=== PATIENT | female | born 1985 | race Caucasian/White ===

== ENCOUNTER 2018-07-17 07:28 | Day surgery (SDC) | payer OTHER ==
[2018-07-17] MEDS ORDERED: NA CHLORIDE 0.9% 250 ML ONE (07:48)
[2018-07-17 09:29] LABS: MPV 9.2 fL (7.6-11.3)
[2018-07-17 09:44] LABS: Platelet Estimate ADEQ
== END 2018-07-17 09:24 | disposition home or self-care (01) ==
LOC: DS 07:28
PROVIDERS: ATTEND Internal Medicine Gastroenterology
DX: K92.1 Melena (principal)
CPT/HCPCS: 36415; 36430; 85049; 86850; 86900; 86901; P9035

== ENCOUNTER 2018-07-17 11:02 | Inpatient (IN) | payer OTHER ==
[2018-07-17 12:11] LABS: Absolute Lymphocytes (CBC) 1.3 K/uL (0.7-4.9); Absolute Monocytes 0.3 K/uL (0.1-1.3); Absolute Neutrophil 3.1 K/uL (1.8-8.0); Basophils % 0.5 % (0-1.3); Eosinophils % 0.5 % (0-4.4); Hematocrit 15.2 % (36.0-45.0); Lymphocytes % 26.8 % (15.3-44.8); MPV 9.7 fL (7.6-11.3); Monocytes % 6.4 % (3.3-12.3); RBC Red Blood Cell Count 1.72 M/uL (3.86-4.86)
[2018-07-17 12:28] LABS: ALT/SGPT 46 U/L (12-78); AST/SGOT 29 U/L (15-37); Albumin 2.8 g/dL (3.4-5.0); Alkaline Phosphatase 37 U/L (45-117); BUN Blood Urea Nitrogen 7 mg/dL (7-18); Bicarbonate 27 mmol/L (21-32); Bilirubin Direct < 0.1 mg/dL (0-0.2); Bilirubin Total 0.2 mg/dL (0.2-1.0); Glucose Level 101 mg/dL (74-106); Lipase 85 U/L (73-393); Potassium 3.6 mmol/L (3.5-5.1); Protein, Total 5.8 g/dL (6.4-8.2); Sodium Level 140 mmol/L (136-145)
[2018-07-17] MEDS ORDERED: NA CHLORIDE 0.9% 0 ML ONE (12:34)
--- NOTE | 2018-07-17 13:36 | EDPHYS ---
Physician Documentation [facility] Name: Roberta Bojorquez Age: 32 yrs Sex: Female : 1985 Arrival Date: 07/17/2018 Time: 11:06 Bed 20 Private MD: None, None ED Physician Dar Villatoro HPI: 07/17 13:35 This 32 yrs old Female presents to ER via Ambulatory with complaints of jr8 Abnormal Lab Results. GI bleeding. 13:35 The patient presents to the emergency department with rectal bleeding, a moderate jr8 amount, bright red blood with bowel movement, with multiple such episodes. Onset: The symptoms/episode began/occurred gradually, 5 day(s) ago. Abdominal pain: none is appreciated. Modifying factors: The symptoms are alleviated by nothing, the symptoms are aggravated by nothing. Associated signs and symptoms: Pertinent positives: dizziness when standing, fatigue . Severity of symptoms: At their worst the symptoms were moderate in the emergency department the symptoms are unchanged. The patient has not experienced similar symptoms in the past. The patient has been recently seen by a physician:. Patient recently seen by Dr. Faria for GI bleeding. Was prepped to have colonoscopy and endoscopy today but her blood work returned with significantly low H/H. Told to come to ED at that time for further treatment and admission . 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 - Social history:: Smoking status: Patient/guardian denies using tobacco. - Ebola Screening: : No symptoms or risks identified at this time. ROS: 13:35 Eyes: Negative for injury, pain, redness, and discharge, ENT: Negative for injury, jr8 pain, and discharge, Neck: Negative for injury, pain, and swelling, Cardiovascular: Negative for chest pain, palpitations, and edema, Respiratory: Negative for shortness of breath, cough, wheezing, and pleuritic chest pain, Back: Negative for injury and pain, MS/Extremity: Negative for injury and deformity, Skin: Negative for injury, rash, and discoloration, Neuro: Negative for headache, weakness, numbness, tingling, and seizure. Positive for dizziness 13:35 Constitutional: Positive for fatigue. 13:35 Abdomen/GI: Positive for rectal bleeding, Negative for abdominal pain, nausea, vomiting, and diarrhea, hematemesis, black/tarry stool, rectal pain, bowel incontinence, flatulence. Exam: 13:35 Eyes: Pupils equal round and reactive to light, extra-ocular motions intact. Lids and jr8 lashes normal. Conjunctiva and sclera are non-icteric and not injected. Cornea within normal limits. Periorbital areas with no swelling, redness, or edema. ENT: Nares patent. No nasal discharge, no septal abnormalities noted. Tympanic membranes are normal and external auditory canals are clear. Oropharynx with no redness, swelling, or masses, exudates, or evidence of obstruction, uvula midline. Mucous membranes moist. Neck: Trachea midline, no thyromegaly or masses palpated, and no cervical lymphadenopathy. Supple, full range of motion without nuchal rigidity, or vertebral point tenderness. No Meningismus. Cardiovascular: Regular rate and rhythm with a normal S1 and S2. Grade 2/5 systolic murmur. Normal PMI, no JVD. No pulse deficits. Respiratory: Lungs have equal breath sounds bilaterally, clear to auscultation and percussion. No rales, rhonchi or wheezes noted. No increased work of breathing, no retractions or nasal flaring. Back: No spinal tenderness. No costovertebral tenderness. Full range of motion. MS/ Extremity: Pulses equal, no cyanosis. Neurovascular intact. Full, normal range of motion. Neuro: Awake and alert, GCS 15, oriented to person, place, time, and situation. Cranial nerves II-XII grossly intact. Motor strength 5/5 in all extremities. Sensory grossly intact. Cerebellar exam normal. Normal gait. 13:35 Abdomen/GI: Inspection: abdomen appears normal, Bowel sounds: active, all quadrants, Palpation: abdomen is soft and non-tender, in all quadrants, mass, is not appreciated, rebound tenderness, is not appreciated, voluntary guarding, is not appreciated, involuntary guarding, is not appreciated, no appreciated organomegaly, Rectal exam: rectal tone normal, Stool: grossly bloody, guaiac positive, hemorrhoid(s), are not appreciated, mass, is not appreciated, swelling, is not appreciated, tenderness, is not appreciated, the exam is chaperoned by the nurse, Indicators: McBurney's point is not tender, Dumont's sign is negative, Rovsing's sign is negative, Liver: tenderness, is not appreciated. 13:35 Skin: Appearance: Color: pale, Temperature: cool, Moisture: normal moisture, petechiae, not noted, ecchymosis, not noted. Vital Signs: 11:18 BP 128 / 67; Pulse 98; Resp 16 S; Temp 98.7(TE); Pulse Ox 100% on R/A; Weight 88 kg aa5 (R); Height 5 ft. 8 in. (172.72 cm) (R); Pain 4/10; 12:12 BP 113 / 66; Pulse 95; Resp 18; Pulse Ox 100% on R/A; hj 13:31 BP 115 / 68; Pulse 89; Resp 18; Pulse Ox 100% on R/A; hj 14:54 BP 115 / 58; Pulse 85; Resp 18; Pulse Ox 100% on R/A; hj 15:44 BP 115 / 58; Pulse 94; Resp 18; Pulse Ox 96% on R/A; hj 11:18 Body Mass Index 29.50 (88.00 kg, 172.72 cm) aa5 MDM: 11:19 Patient medically screened. [facility] 13:33 Data reviewed: vital signs, nurses notes, lab test result(s), and as a result, I will jr admit patient. Data interpreted: Pulse oximetry: on room air is 100 %. Interpretation: normal. Counseling: I had a detailed discussion with the patient and/or guardian regarding: the historical points, exam findings, and any diagnostic results supporting the discharge/admit diagnosis, lab results, the need for further work-up and treatment in the hospital. Physician consultation: Henry Henning MD was called at 13:33, was contacted at 13:33, regarding admission, to the telemetry unit. consult, patient's condition, and will see patient. ED course: Dr. Faria Consulted and will see patient as well . 07/17 11:34 Order name: Basic Metabolic Panel; Complete Time: 12:42 iw 07/17 11:34 Order name: CBC with Diff; Complete Time: 12:42 iw 07/17 11:34 Order name: Creatinine for Radiology; Complete Time: 12:42 iw 07/17 11:34 Order name: Hepatic Function; Complete Time: 12:42 07/17 11:34 Order name: Lipase; Complete Time: 12:42 07/17 11:34 Order name: Type And Screen 07/17 11:34 Order name: IV Saline Lock; Complete Time: 11:43 07/17 11:34 Order name: Labs collected and sent; Complete Time: 11:43 07/17 13:10 Order name: Bb Add On eb Administered Medications: 13:37 Drug: ProTONIX 40 mg Route: IVP; Site: right antecubital; hj 13:42 Follow up: Response: No adverse reaction hj 15:52 Follow up: Response: No adverse reaction hj 13:59 Drug: ProTONIX 8 mg/hr Route: IV; Rate: 25 ml/hr; Site: left antecubital; hj 15:51 Follow up: IV Status: Infusion continued upon admission Disposition: 17:14 Co-signature as Attending Physician, Dar Villatoro MD. Disposition: 07/17/18 13:34 Hospitalization ordered by Henry Henning for Inpatient Admission. Preliminary diagnosis are Acute Anemia, Gastrointestinal hemorrhage, unspecified. - Bed requested for Telemetry/MedSurg (Inpatient). - Status is Inpatient Admission. hj - Condition is Stable. - Problem is new. - Symptoms are unchanged. UTI on Admission? No Critical care time excluding procedures: 15:09 Critical care time: Bedside Care: 20 minutes, Consultation: 10 minutes, Family jr8 Intervention: 10 minutes. Total time: 40 minutes Signatures: Dispatcher [employer]DA[employer] Vero Cheney RN RN Meseret Cruz RN RN aa5 Gabriele Gerardo PA PA jr8 Sergio Rawls RN RN hj Starr, Gregory, MD MD Corrections: (The following items were deleted from the chart) 13:40 13:35 Eyes: Pupils equal round and reactive to light, extra-ocular motions intact. Lids jr8 and lashes normal. Conjunctiva and sclera are non-icteric and not injected. Cornea within normal limits. Periorbital areas with no swelling, redness, or edema. ENT: Nares patent. No nasal discharge, no septal abnormalities noted. Tympanic membranes are normal and external auditory canals are clear. Oropharynx with no redness, swelling, or masses, exudates, or evidence of obstruction, uvula midline. Mucous membranes moist. Neck: Trachea midline, no thyromegaly or masses palpated, and no cervical lymphadenopathy. Supple, full range of motion without nuchal rigidity, or vertebral point tenderness. No Meningismus. Cardiovascular: Regular rate and rhythm with a normal S1 and S2. No gallops, murmurs, or rubs. Normal PMI, no JVD. No pulse deficits. Respiratory: Lungs have equal breath sounds bilaterally, clear to auscultation and percussion. No rales, rhonchi or wheezes noted. No increased work of breathing, no retractions or nasal flaring. Back: No spinal tenderness. No costovertebral tenderness. Full range of motion. MS/ Extremity: Pulses equal, no cyanosis. Neurovascular intact. Full, normal range of motion. Neuro: Awake and alert, GCS 15, oriented to person, place, time, and situation. Cranial nerves II-XII grossly intact. Motor strength 5/5 in all extremities. Sensory grossly intact. Cerebellar exam normal. Normal gait. jr8 15:49 13:34 Hospitalization Ordered by Henry Henning MD for Inpatient Admission. Preliminary iw diagnosis is Acute Anemia; Gastrointestinal hemorrhage, unspecified. Bed requested for Telemetry/MedSurg (Inpatient). Status is Inpatient Admission. Condition is Stable. Problem is new. Symptoms are unchanged. UTI on Admission? No. jr8 16:02 15:49 07/17/2018 13:34 Hospitalization Ordered by Henry Henning MD for Inpatient hj Admission. Preliminary diagnosis is Acute Anemia; Gastrointestinal hemorrhage, unspecified. Bed requested for Telemetry/MedSurg (Inpatient). Status is Inpatient Admission. Condition is Stable. Problem is new. Symptoms are unchanged. UTI on Admission? No. iw
--- NOTE | 2018-07-17 13:36 | ER ---
Nurse's Notes [facility] Name: Roberta Bojorquez Age: 32 yrs Sex: Female : 1985 Arrival Date: 07/17/2018 Time: 11:06 Bed 20 Private MD: None, None Diagnosis: Acute Anemia;Gastrointestinal hemorrhage, unspecified Presentation: 07/17 11:15 Presenting complaint: Patient states: "I started having bloody stools on Tuesday and aa5 I saw a GI doctor that checked my hemoglobin on Tuesday and it was 8.5 and today it's 5.4". Transition of care: patient was not received from another setting of care. Onset of symptoms was July 17, 2018. Risk Assessment: Do you want to hurt yourself or someone else? Patient reports no desire to harm self or others. Initial Sepsis Screen: Does the patient meet any 2 criteria? No. Patient's initial sepsis screen is negative. Does the patient have a suspected source of infection? No. Patient's initial sepsis screen is negative. Care prior to arrival: None. 11:15 Method Of Arrival: Ambulatory aa5 11:15 Acuity: LJ 3 aa5 Triage Assessment: 11:25 General: Appears in no apparent distress. uncomfortable, Behavior is calm, cooperative, hj appropriate for age. Pain: Denies pain. 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 - Social history:: Smoking status: Patient/guardian denies using tobacco. - Ebola Screening: : No symptoms or risks identified at this time. Screenin:25 Abuse screen: Denies threats or abuse. Denies injuries from another. Nutritional hj screening: No deficits noted. Tuberculosis screening: No symptoms or risk factors identified. Fall Risk None identified. Assessment: 11:15 General: Appears in no apparent distress. uncomfortable, Behavior is calm, cooperative, hj appropriate for age. Pain: Denies pain. Neuro: Level of Consciousness is awake, alert, obeys commands, Oriented to person, place, time, situation, Appropriate for age. Cardiovascular: Capillary refill < 3 seconds Patient's skin is warm and dry. Respiratory: Airway is patent Respiratory effort is even, unlabored, Respiratory pattern is regular, symmetrical. GI: No signs and/or symptoms were reported involving the gastrointestinal system. : No signs and/or symptoms were reported regarding the genitourinary system. EENT: No signs and/or symptoms were reported regarding the EENT system. Derm: No signs and/or symptoms reported regarding the dermatologic system. Musculoskeletal: No signs and/or symptoms reported regarding the musculoskeletal system. 12:12 Reassessment: Patient and/or family updated on plan of care and expected duration. Pain hj level reassessed. Patient is alert, oriented x 3, equal unlabored respirations, skin warm/dry/pink. awaiting results and POC;. 13:30 Reassessment: Patient and/or family updated on plan of care and expected duration. Pain hj level reassessed. Patient is alert, oriented x 3, equal unlabored respirations, skin warm/dry/pink. awaiting room placement;. 14:30 Reassessment: Patient and/or family updated on plan of care and expected duration. Pain hj level reassessed. Patient is alert, oriented x 3, equal unlabored respirations, skin warm/dry/pink. awaiting for room placement;. 15:15 Reassessment: Patient and/or family updated on plan of care and expected duration. Pain hj level reassessed. Patient is alert, oriented x 3, equal unlabored respirations, skin warm/dry/pink. called house sup for room placment;. 15:44 Reassessment: Patient and/or family updated on plan of care and expected duration. Pain hj level reassessed. Patient is alert, oriented x 3, equal unlabored respirations, skin warm/dry/pink. awaiting room placement;. 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 hj Vital Signs: 11:18 BP 128 / 67; Pulse 98; Resp 16 S; Temp 98.7(TE); Pulse Ox 100% on R/A; Weight 88 kg aa5 (R); Height 5 ft. 8 in. (172.72 cm) (R); Pain 4/10; 12:12 BP 113 / 66; Pulse 95; Resp 18; Pulse Ox 100% on R/A; hj 13:31 BP 115 / 68; Pulse 89; Resp 18; Pulse Ox 100% on R/A; hj 14:54 BP 115 / 58; Pulse 85; Resp 18; Pulse Ox 100% on R/A; hj 15:44 BP 115 / 58; Pulse 94; Resp 18; Pulse Ox 96% on R/A; hj 11:18 Body Mass Index 29.50 (88.00 kg, 172.72 cm) aa5 ED Course: 11:06 Patient arrived in ED. mr 11:06 None, None is Private Physician. mr 11:15 Arm band placed on. aa5 11:16 Triage completed. aa5 11:19 Gabriele Gerardo PA is PHCP. jr8 11:19 Dar Villatoro MD is Attending Physician. jr8 11:21 Sergio Rawls RN is Primary Nurse. hj 11:26 Patient has correct armband on for positive identification. Placed in gown. Bed in low hj position. Call light in reach. Side rails up X 1. Adult w/ patient. 11:50 IV is intact, with fluids infusing freely, with good blood return, Flushed right hj antecubital from SDS;. 13:30 No provider procedures requiring assistance completed. IV discontinued, intact, hj bleeding controlled, No redness/swelling at site. Pressure dressing applied. 13:34 Henry Henning MD is Hospitalizing Provider. jr8 14:00 Inserted saline lock: 22 gauge in left antecubital area, using aseptic technique. Blood hj collected. Administered Medications: 13:37 Drug: ProTONIX 40 mg Route: IVP; Site: right antecubital; hj 13:42 Follow up: Response: No adverse reaction hj 15:52 Follow up: Response: No adverse reaction hj 13:59 Drug: ProTONIX 8 mg/hr Route: IV; Rate: 25 ml/hr; Site: left antecubital; hj 15:51 Follow up: IV Status: Infusion continued upon admission hj Outcome: 13:34 Decision to Hospitalize by Provider. jr8 16:00 Admitted to Med/surg accompanied by tech, family with patient, via wheelchair, room hj 224, with chart, Report called to IRVER Vaughan 16:00 Condition: stable 16:00 Instructed on the need for admit, Demonstrated understanding of instructions. 16:02 Patient left the ED. hj Signatures: Molina, Silvana CruzMeseret, RN RN aa5 Gabriele Gerardo PA PA jr8 Sergio Rawls RN RN hj Corrections: (The following items were deleted from the chart) :31 Reassessment: for D/C; hj hj 13:31 Condition: stable hj hj :31 Discharged to home ambulatory, with family, hj 13:31 Discharge instructions given to patient, family, Instructed on discharge instructions, follow up and referral plans. medication usage, Demonstrated understanding of instructions, follow-up care, medications, Prescriptions given X 2, hj 16:03 16:00 Discharged to home via wheelchair, hj hj
[2018-07-17] MEDS ORDERED: PANTOPRAZOLE INJ 80 MG in NA CHLORIDE 0.9% 250 ML IV ONE (13:45)
[2018-07-17] MEDS ORDERED: NA CHLORIDE 0.9% 250 ML ONE ×2 (16:43→20:17)
[2018-07-17] MEDS ORDERED: NA CHLORIDE 0.9% 1,000 ML ONE (16:43)
[2018-07-17] MEDS: NA CHLORIDE 0.9% 1,000 ML IV SCH (17:56)
--- NOTE | 2018-07-17 19:32 | P.HP ---
Patient History Date of Service: 07/17/18 History of Present Illness: This is a 32-year-old female with a past medical history of Glanzsmann thrombasthenia, iron-deficiency anemia sent to the ER from [facility] for low hemoglobin and hematochezia. Per patient she has been having more the maroon/ read solid stools for the past few days that has been progressively worsening and getting brighter. This has been associated with dizziness, especially when moving and headache. She also endorses shortness of breath with exertion. Denies any hematemesis, chest pain, abdominal pain, or complaints. She had been following up with Dr. engle this clinic, she even had a bowel prep, was supposed to do the EGD and colonoscopy on the day of admission. When she went to the clinic, her blood work was drawn in the morning, hemoglobin was 5.6 and she was sent to the ER for further evaluation/transfusion. In the ER, she was found to have a hemoglobin of 5.1 and hematocrit of 15.2. At the time of my exam, patient was alert oriented x3, complaining of headache but was hemodynamically stable. Allergies No Known Allergies Allergy (Verified 07/17/18 17:13) Home Medications: NK [No Home Meds] 07/17/18 - Past Medical/Surgical History Diabetic: No -: glanzmans thrombesthenia -: iron deficiency anemia -: breast augmentation - Social History Smoking Status: Never smoker Alcohol use: Yes CD- Drugs: No Caffeine use: Yes Place of Residence: Home Review of Systems 10-point ROS is otherwise unremarkable Physical Examination - Vital Signs Temperature: 98.7 F Blood Pressure: 119/57 Pulse: 93 Respirations: 14 Pulse Ox (%): 100 - Physical Exam General: Alert, In no apparent distress, Oriented x3 HEENT: Atraumatic, PERRLA, Other (Pale mucosa), EOMI Neck: Supple, 2+ carotid pulse no bruit, No LAD, Without JVD or thyroid abnormality Respiratory: Clear to auscultation bilaterally, Normal air movement Cardiovascular: Regular rate/rhythm, Normal S1 S2 Gastrointestinal: Normal bowel sounds, No tenderness Musculoskeletal: No tenderness Integumentary: No rashes Neurological: Normal gait, Normal speech, Normal strength at 5/5 x4 extr, Normal tone, Normal affect - Studies Laboratory Data (last 24 hrs) 07/17/18 11:50: Creatinine 0.63 07/17/18 11:50: WBC 4.7, Hgb 5.1 L*, Hct 15.2 L*, Plt Count 223 07/17/18 11:50: Sodium 140, Potassium 3.6, BUN 7, Creatinine 0.65, Glucose 101, Total Bilirubin 0.2, AST 29, ALT 46, Alkaline Phosphatase 37 L, Lipase 85 Assessment and Plan - Problems (Diagnosis) (1) GI bleeding Onset Date: 07/18/18 Current Visit: Yes Status: Acute Qualifiers: GI bleed type/associated pathology: unspecified gastrointestinal hemorrhage type Qualified Code(s): K92.2 - Gastrointestinal hemorrhage, unspecified (2) Acute blood loss anemia Onset Date: 07/18/18 Current Visit: Yes Status: Acute (3) 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 Maintenance IVF Hold anticoagulation. Monitor H&H post transfussion GI bleeding (Acute 07/18/18) K92.2 GI consult (Dr. Faria's patient); possible colonoscopy tomorrow. 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 Continue to monitor hemodynamics. - Advance Directives Does patient have a Living Will: No Does patient have a Durable POA for Healthcare: No Time Spent Managing Pts Care (In Minutes): 55
[2018-07-17] MEDS ORDERED: ACETAMINOPHEN 500 MG TAB PO ONE (21:55)
[2018-07-17] MEDS ORDERED: MAGNESIUM CITRATE 300 ML BOT PO ONE (23:00)
[2018-07-18] MEDS: PANTOPRAZOLE INJ 80 MG in NA CHLORIDE 0.9% 250 ML IV SCH ×3 (00:11→18:35)
[2018-07-18 01:07] LABS: Hematocrit 22.8 % (36.0-45.0)
[2018-07-18] MEDS: NA CHLORIDE 0.9% 1,000 ML IV SCH ×3 (02:19→18:57)
[2018-07-18] MEDS ORDERED: NA CHLORIDE 0.9% 250 ML ONE ×2 (03:58→09:18)
[2018-07-18 09:20] LABS: ALT/SGPT 41 U/L (12-78); AST/SGOT 26 U/L (15-37); Albumin 2.7 g/dL (3.4-5.0); Alkaline Phosphatase 38 U/L (45-117); BUN Blood Urea Nitrogen 6 mg/dL (7-18); Bicarbonate 24 mmol/L (21-32); Bilirubin Total 0.4 mg/dL (0.2-1.0); Glucose Level 93 mg/dL (74-106); Potassium 4.6 mmol/L (3.5-5.1); Protein, Total 5.5 g/dL (6.4-8.2); Sodium Level 142 mmol/L (136-145)
[2018-07-18 09:28] LABS: Hematocrit 25.8 % (36.0-45.0)
[2018-07-18 10:49] LABS: Urine Appearance CLEAR; Urine Bilirubin NEGATIVE (NEG); Urine Blood NEGATIVE (NEG); Urine Color YELLOW; Urine Glucose NEGATIVE (NEG); Urine Protein NEGATIVE (NEG); Urine Specific Gravity 1.015 (1.005-1.030); Urine Urobilinogen 0.2 mg/dL (0.2-1.0); Urine pH 7.5 (5.0-7.0)
[2018-07-18 11:08] LABS: Urine Microscopic Reflex ORDER UMIC
[2018-07-18 11:36] LABS: Urine Bacteria <20 /HPF (<20); Urine Culture Reflex Order REFLEXED; Urine RBC <5 /HPF (NONE SEEN)
[2018-07-18] MEDS ORDERED: Ringers Lactate 1,000 ML IV ONE (11:45)
[2018-07-18 12:47] LABS: Specific Gravity 1.015 (1.005-1.030)
[2018-07-18] MEDS ORDERED: PROPOFOL 200 MG/20 ML VIAL IV ONE ×2 (12:55→13:21)
[2018-07-18] MEDS ORDERED: ONDANSETRON 4 MG/2 ML VIAL ONE (13:19)
[2018-07-18] MEDS ORDERED: MIDAZOLAM HCL 2 MG/2 ML INJ ONE (13:21)
[2018-07-18] MEDS ORDERED: EPINEPHRINE/PF 1 MG/ML AMP IV ONE (13:32)
--- NOTE | 2018-07-18 14:04 | ENDO RPT ---
[address], [address] EGD PROCEDURE REPORT EXAM DATE: 07/18/2018 PATIENT NAME: Roberta Bojorquez MR#: [id number] BIRTHDATE: 1985 ATTENDING: Fransisco Faria Dr STATUS: inpatient - [facility] [employer] TOP ASSEMBLER: Noelle Peterson RN and Benita Becerril RN INDICATIONS: The patient is a 32 yr old Female here for an EGD due to red rectal bleeding and iron deficiency anemia PROCEDURE PERFORMED: EGD with biopsy MEDICATIONS: Per Anesthesia. TOPICAL ANESTHETIC: none CONSENT: The patient understands the risks and benefits of the procedure and understands that these risks include, but are not limited to: sedation, allergic reaction, infection, perforation and/or bleeding. Alternative means of evaluation and treatment include, among others: physical exam, x-rays, and/or surgical intervention. The patient elects to proceed with this endoscopic procedure. DESCRIPTION OF PROCEDURE: During intra-op preparation period all mechanical medical equipment was checked for proper function. Hand hygiene and appropriate measures for infection prevention was taken. Procedure, possible complications, and alternatives including but not limited to the possibility of bleeding, perforation, tear, infection, sepsis, need for surgery, need for blood transfusion, and anesthesia related complications were explained to the patient. After the risks, benefits and alternatives of the procedure were thoroughly explained, Informed consent was verified, confirmed and timeout was successfully executed by the treatment team. The patient was placed in the left lateral position. The patient was anesthetized with topical anesthesia. Through the anesthetized oropharyngeal area, the scope was passed without any difficulty. The Pentax EG-[id number] ([id number]) endoscope was introduced through the mouth and advanced to the third portion of the duodenum. Retroflexed views revealed a small hiatal hernia. The gastroscope was then slowly withdrawn and removed. A small hiatal hernia was found Multiple ulcers were found in the antrum. Multiple biopsies were obtained and sent to pathology. No active bleeding nor stigmata of recent hemorrhage. ADVERSE EVENTS: There were no complications. IMPRESSIONS: 1. Small sliding hiatal hernia 2. Multiple (3) small 2-3 mm shallow clean-based ulcers in the pre-pyloric antrum, s/p gastric biopsies 3. No active bleeding nor stigmata of recent hemorrhage RECOMMENDATIONS: 1. await biopsy results 2. acid suppression therapy REPEAT EXAM: for Colonoscopy. Fransisco Faria Dr eSigned: Fransisco Faria Dr 07/18/2018 1:37 PM cc: CPT CODES: ICD9 CODES: PATIENT NAME: Roberta Bojorquez MR#: [id number]
--- NOTE | 2018-07-18 14:04 | ENDO RPT ---
[address], [address] COLONOSCOPY PROCEDURE REPORT EXAM DATE: 07/18/2018 PATIENT NAME: Roberta Bojorquez MR #: [id number] BIRTHDATE: 1985 ATTENDING: Fransisco Faria Dr STATUS: inpatient - 7 SSN/SSBN WE[employer] EQUIPMENT OPERATOR: Noelle Peterson RN and Benita Becerril RN INDICATIONS: The patient is a 32 yr old Female here for a colonoscopy due to hematochezia and iron deficiency anemia PROCEDURE PERFORMED: Colonoscopy with directed submucosal injection(s) any substance and Colonoscopy for control of bleeding MEDICATIONS: Per Anesthesia. ESTIMATED BLOOD LOSS: None CONSENT: The patient understands the risks and benefits of the procedure and understands that these risks include, but are not limited to: sedation, allergic reaction, infection, perforation and/or bleeding. Alternative means of evaluation and treatment include, among others: physical exam, x-rays, and/or surgical intervention. The patient elects to proceed with this endoscopic procedure. DESCRIPTION OF PROCEDURE: During intra-op preparation period all mechanical medical equipment was checked for proper function. Hand hygiene and appropriate measures for infection prevention was taken. Procedure, possible complications, alternatives including, but not limited to possibility of bleeding, perforation, tear, infection, sepsis, need for surgery, need for blood transfusion, were explained to the patient. After the risks, benefits and alternatives of the procedure were thoroughly explained, Informed consent was verified, confirmed and timeout was successfully executed by the treatment team. The patient was placed in the left lateral position. A digital rectal exam was performed and revealed no abnormalities of the rectum. After appropriate level of anesthesia, the scope was passed. The EC-[id number] ([id number]) endoscope was introduced through the anus and advanced to the terminal ileum which was intubated for a short distance. The quality of the prep was good. The instrument was then slowly withdrawn as the colon was fully examined. Scope withdrawal time was 9 minutes. COLON FINDINGS: Upon reaching cecum, bilious non-bloody fluid in the base of the cecum. No bleeding noted until after TI intubated with trauma to TI orifice / ileocecal valve. A large bleeding and round ulcer, measuring 20 x 12mm in size, with heaped up edges and an adherent clot was found at the ileocecal valve, s/p biopsies of the ulcer edge. Submucosal injection of 6ml of epinephrine 1:10,000 was performed around the bleeding site with complete hemostasis achieved. Submucosal injection of 6ml of epinephrine 1:10,000 was performed around the bleeding site with good treatment effect. Ulcer was too large for endoclips. Did not remove adherent clot at center of ulcer. Small internal hemorrhoids were found. Retroflexed views revealed small hemorrhoids. The scope was then completely withdrawn from the patient and the procedure terminated. ADVERSE EVENTS: There were no complications. IMPRESSIONS: 1. Large ulcer, measuring 20 x 12mm in size, was found at the ileocecal valve; Submucosal injection of 6ml of epinephrine 1:10,000 was performed around the bleeding site; Submucosal injection of 6ml of epinephrine 1:10,000 was performed around the bleeding site with good hemostasis. Ulcer with heaped up edges too large to clip. Possible IBD versus viral ulcer versus other. No bleeding noted until after TI intubated with trauma to TI orifice / ileocecal valve 2. Small internal hemorrhoids 3. Intubation to terminal ileum RECOMMENDATIONS: 1. await biopsy results 2. avoid NSAIDS 3. check [employer] serologies 5. consider surgery consult if bleeding / drop in hemoglobin recurs RECALL: Fransisco Faria Dr eSigned: Fransisco Faria Dr 07/18/2018 2:00 PM cc: CPT CODES: ICD9 CODES: 1. 569.82 Ulceration of intestine 2. 578.9 Hemorrhage of gastrointestinal tract, unspecified PATIENT NAME: Roberta Bojorquez MR#: [id number]
--- NOTE | 2018-07-18 14:47 | P.PN ---
Subjective Date of Service: 07/18/18 Subjective: No C/O voiced, Improving Patient seen and examined at bedside. No family at bedside. Chart reviewed and case discussed with nursing staff.. Reports feeling better, denies any symptoms this morning. Review of Systems 10-point ROS is otherwise unremarkable Physical Examination - Vital Signs Temperature: 98.7 F Blood Pressure: 119/57 Pulse: 93 Respirations: 14 Pulse Ox (%): 100 - Physical Exam General: Alert, In no apparent distress, Oriented x3 HEENT: Atraumatic, PERRLA, EOMI Neck: Supple, JVD not distended Respiratory: Clear to auscultation bilaterally, Normal air movement Cardiovascular: Regular rate/rhythm, Normal S1 S2 Gastrointestinal: Normal bowel sounds, No tenderness Musculoskeletal: No tenderness Integumentary: No rashes Neurological: Normal speech, Normal tone, Normal affect Lymphatics: No axilla or inguinal lymphadenopathy Assessment And Plan - Current Problems (Diagnosis) (1) GI bleeding Onset Date: 07/18/18 Current Visit: Yes Status: Acute Qualifiers: GI bleed type/associated pathology: unspecified gastrointestinal hemorrhage type Qualified Code(s): K92.2 - Gastrointestinal hemorrhage, unspecified (2) Acute blood loss anemia Onset Date: 07/18/18 Current Visit: Yes Status: Acute (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 Currently receiving 1 unit PRBC Transfuse to keep Hgb above 8; Maintenance IVF Hold anticoagulation. Monitor H&H post transfussion GI bleeding (Acute 07/18/18) K92.2 GI consult (Dr. Faria's patient); pending evaluation and colonoscopy/EGD today. 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 DVT prophylaxis: Hold GI prophylaxis: Protonix Diet: NPO Disposition: Pending GI evaluation/colonoscopy/EGD. Continue to monitor hemodynamics.
--- NOTE | 2018-07-18 17:36 | RAD REPORT ---
EXAM DESCRIPTION: RAD - Small Bowel Series - 07/18/2018 5:00 pm CLINICAL HISTORY: GI bleed, anemia COMPARISON: None. FINDINGS: Attacher film shows a nonspecific bowel gas pattern. No obstruction or free air. No suspiciou s calcifications. Gastric size and mucosal fold pattern are normal. No delay in transit of contrast into the small beth l. Small bowel is normal in diameter with no mucosal fold thickening. No intrinsic or extrinsic mass identifiable. Terminal ileum has normal appearance. Transit time to the colon is 1 hour 45 minutes. IMPRESSION: Normal small bowel series.
--- NOTE | 2018-07-18 19:36 | CON ---
Date of Consultation: 07/18/2018 Reason For Consultation: Hematochezia, anemia with hemoglobin down to 5.1. 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 The patient is in medical attention due to he matochezia, decided for an outpatient endoscopy, EGD and colonoscopy. However, upon presentation in the morning after platelet transfusion, the patient appeared frankly pale and anemic. Stat hemoglobi n revealed hemoglobin down to 5.4. The patient was transferred to [facility] [place], [place] emergency room. Repeat hemoglobin was 5.1. The patient was admitted to the hosp ital, 3 units packed RBCs were given, patient's hemoglobin has increased from 5.1 to 8.8. The patien t feels much better. Yesterday, she felt dizzy with presyncope, has headaches, shortness of breath, and decreased hearing that was off and on. All this has resolved since her blood transfusion. She h as no nausea, vomiting, abdominal pain, fevers, chills, night sweats, hematemesis, coffee-grounds gaviota sis, melena. She only has hematochezia. She has no prior GI bleeding events until this new onset he matochezia recently. 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 Both her parents are carriers. She also has a history of iron-def iciency anemia, breast augmentation. Medications: At home is appears to be none. Allergies: NKDA. Social History: She is single, though she has a boyfriend, possible fiancee. No tobacco, but positi ve for occasional alcohol. Family History: Father with diabetes, colon polyps. Mother with alive, history of hypertension and hypothyroidism. Review of Systems: The patient has presyncope with dizziness, headaches, shortness of breath, reduced hearing that would come and go until blood transfusion yesterday. Since that time, she has no further symptoms, but sh e also denied any abdominal pain, nausea, vomiting, fevers, chills, night sweats, hematemesis, coffee -grounds emesis, melena, hemoptysis, hematuria, dysuria, polydipsia, chest pain, shortness of breath, seizure, syncope, lower extremity edema, muscle aches, joint aches, backaches, depression, anxiety. Physical Examination: Vital Signs: The patient is 5 foot 8 inches, 189 pounds. BMI of 29 kg/m2. Temperature 99.2 degrees Fahrenheit, pulse 84, respirations 18, blood pressure 117/64, O2 saturation 100%. Earlier temperatu re is 97.1 to 98.0. General: She is well-nourished, well-developed female, lying in bed, in no acute distress. HEENT: Normocephalic and atraumatic. Anicteric. Pupils equal, round, and reactive to light. Extra ocular movements intact. Oropharynx is clear. Neck: Supple. No masses. Respirations: Clear to auscultation bilaterally. Cardiac: Regular rate and rhythm. No gallops or rubs. Abdomen: Positive bowel sounds. Soft, nontender, nondistended. No hepatosplenomegaly. Extremities: No clubbing, cyanosis, or edema. 2+ pulses. Neuro: Alert and oriented x3. Grossly nonfocal. 5/5 motor strength. Sensation intact to light etienne ch. Laboratory Data: On admission, patient had a hemoglobin in the hospital 5.1, hematocrit of 15.2, MCV of 89, white count of 4.7, platelets of 223, polys of 66%, lymphocytes 27%, monocytes 6%. The patie nt today has a sodium 142, potassium 4.6, chloride 112, bicarb 24, BUN of 6, creatinine of 0.7, gluco se 93, calcium 7.9, total bilirubin 0.4, direct bilirubin yesterday of less than 0.1, AST of 26, ALT of 14, alkaline phosphatase 38, total protein 5.5, albumin 2.7, globulin 2.8. Lipase yesterday verna l 85. UA reveals trace leukocyte esterase, 10-20 RBCs, less than 5 squamous epithelial cells. Impression: 1.Gastrointestinal bleed with hematochezia, presyncope with dizziness, headaches, shortness of breat h, periodic hearing loss, resolved after 3 units packed RBCs given in the hospital. Did receive plat elets yesterday prior to attempted endoscopy due to her Glanzmann thrombasthenia. However, she had t ransfuse and platelets were given again today prior to procedure to be performed. 2.Anemia secondary to her hematochezia, gastrointestinal bleed, hemoglobin of 5.1, after transfusion is up to 8.8. 3.History of Glanzmann thrombasthenia, nonfunctional platelet disorder, autosomal recessive disorder . Both parents as carriers. The patient has iron-deficiency anemia and breast augmentation. Recommendations: 1.Packed RBCs 3 units is already been done. Platelets 2 units already been done. Serial H and H, a nd transfuse p.r.n. 2.EGD and colonoscopy soon. 3.PPI therapy. Keep patient on Protonix IV drip at this time. RUMA/SAMANTHA Voice ID: [id number] Report ID: [id number]
[2018-07-19] MEDS: PANTOPRAZOLE INJ 80 MG in NA CHLORIDE 0.9% 250 ML IV SCH ×2 (04:21→17:20)
[2018-07-19] MEDS: NA CHLORIDE 0.9% 1,000 ML IV SCH ×4 (04:26→17:23)
[2018-07-19 06:02] LABS: Absolute Lymphocytes (CBC) 1.6 K/uL (0.7-4.9); Absolute Monocytes 0.5 K/uL (0.1-1.3); Absolute Neutrophil 3.1 K/uL (1.8-8.0); Basophils % 0.5 % (0-1.3); Eosinophils % 2.3 % (0-4.4); Hematocrit 25.1 % (36.0-45.0); Lymphocytes % 29.6 % (15.3-44.8); MPV 9.9 fL (7.6-11.3); Monocytes % 8.9 % (3.3-12.3); RBC Red Blood Cell Count 2.81 M/uL (3.86-4.86)
[2018-07-19 06:14] LABS: Albumin 2.8 g/dL (3.4-5.0); Bilirubin Total 0.4 mg/dL (0.2-1.0); Magnesium 2.1 mg/dL (1.8-2.4); Phosphorus 4.9 mg/dL (2.5-4.9); Protein, Total 5.4 g/dL (6.4-8.2)
[2018-07-19 06:18] LABS: Protime INR 0.95
--- NOTE | 2018-07-19 10:00 | RAD REPORT ---
EXAM DESCRIPTION: NM - Bowel Imaging Axel - 07/19/2018 8:39 am CLINICAL HISTORY: GI bleed/anemia. COMPARISON: None. TECHNIQUE: 10.5 millicuries technetium pertechnetate was administered intravenously. Sequential imag es of the abdomen and pelvis obtained for 60 minutes. FINDINGS: Physiologic radiotracer activity is seen. No abnormal radiotracer uptake is visualized within the bowel. Specifically the right lower quadrant demonstrates normal radiotracer activity. IMPRESSION: Unremarkable examination.
--- NOTE | 2018-07-19 13:09 | P.PN ---
Subjective Date of Service: 07/19/18 Chief Complaint: Hematochezia, anemia, hgb to 5.1 Subjective: Improving (Stable. No further hematochezia or other bleeding noted. 2 cm ulcer at ileocecal valve next to TI orifice with central red heme clot on top. Biopsies of ulcer edge revealed inflammation, no neoplasia or infection. SBS and Meckel's scan were negative.) Review of Systems 10-point ROS is otherwise unremarkable General: Weakness (improved) Physical Examination - Vital Signs Temperature: 97.7 F Blood Pressure: 113/64 Pulse: 81 Respirations: 20 Pulse Ox (%): 100 - Physical Exam General: Alert, In no apparent distress, Oriented x3, Oriented x1 HEENT: Atraumatic, Normocephalic, PERRLA, EOMI Neck: Supple Respiratory: Normal air movement Cardiovascular: Normal pulses Neurological: Normal speech, Normal strength at 5/5 x4 extr Assessment And Plan - Current Problems (Diagnosis) (1) Hematochezia Current Visit: Yes Status: Acute Comment: Probably from 2 cm ulcer with red heme clot on top at ileocecal valve. No other inflammation or ulcers in TI or remainder of colon. Small bowel series and Meckel's scan were negative. (2) Weakness Current Visit: Yes Status: Acute Comment: Improved. (3) Pre-syncope Current Visit: Yes Status: Acute Comment: Resolved. (4) Headache Current Visit: Yes Status: Acute Comment: Resolved. (5) Acute blood loss anemia Onset Date: 07/18/18 Current Visit: Yes Status: Acute Comment: Resolved. 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 - Plan REC: 1) continue PPI therapy for 3 small 2 mm ulcers without stigmata of bleeding in antrum. 2) transfer to [facility] due to possible need of urgent cecectomy, no minimally invasive colorectal surgeon here at [facility] in [place], [place]. Also her [employer] compliance internship in [place]. Dr. Kj Horne has accepted patient with transfer service to call. 3) continue to monitor labs and transfuse prn.
[2018-07-19] MEDS ORDERED: EPINEPHRINE/PF 1 MG/ML AMP ONE (13:56)
--- NOTE | 2018-07-19 15:36 | P.PN ---
Subjective Date of Service: 07/19/18 Chief Complaint: Hematochezia, anemia, hgb to 5.1 Subjective: No C/O voiced Patient seen and examined at bedside. No family at bedside. Chart reviewed and case discussed with nursing staff.. Reports feeling better, denies any symptoms this morning. States she would like to eat Review of Systems 10-point ROS is otherwise unremarkable Physical Examination - Vital Signs Temperature: 97.7 F Blood Pressure: 113/64 Pulse: 81 Respirations: 20 Pulse Ox (%): 100 - Physical Exam General: Alert, In no apparent distress, Oriented x3 HEENT: Atraumatic, PERRLA, EOMI Neck: Supple, JVD not distended Respiratory: Clear to auscultation bilaterally, Normal air movement Cardiovascular: Regular rate/rhythm, Normal S1 S2 Gastrointestinal: Normal bowel sounds, No tenderness Musculoskeletal: No tenderness Integumentary: No rashes Neurological: Normal speech, Normal tone, Normal affect Lymphatics: No axilla or inguinal lymphadenopathy Assessment And Plan - Current Problems (Diagnosis) (1) GI bleeding Onset Date: 07/18/18 Current Visit: Yes Status: Acute Qualifiers: GI bleed type/associated pathology: unspecified gastrointestinal hemorrhage type Qualified Code(s): K92.2 - Gastrointestinal hemorrhage, unspecified (2) Acute blood loss anemia Onset Date: 07/18/18 Current Visit: Yes Status: Acute (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 She is status post 3 units PRBCs total. Transfuse to keep Hgb above 8; Maintenance IVF Hold anticoagulation. Monitor H&H post transfussion GI bleeding (Acute 07/18/18) K92.2 GI consult (Dr. Faria's patient) recommendations appreciated She is status post colonoscopy. Per GI, transfer to [facility] due to possible need for urgent Cecectomy as we do not have an invasive colorectal surgeon here at [facility]. Dr. 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 Transfer for higher level of care
[2018-07-20] MEDS: NA CHLORIDE 0.9% 1,000 ML IV SCH ×3 (02:16→23:48)
[2018-07-20] MEDS: PANTOPRAZOLE INJ 80 MG in NA CHLORIDE 0.9% 250 ML IV SCH ×2 (02:16→11:45)
[2018-07-20 06:42] LABS: Absolute Lymphocytes (CBC) 1.6 K/uL (0.7-4.9); Absolute Monocytes 0.3 K/uL (0.1-1.3); Absolute Neutrophil 2.4 K/uL (1.8-8.0); Basophils % 0.8 % (0-1.3); Eosinophils % 2.2 % (0-4.4); Hematocrit 23.8 % (36.0-45.0); Lymphocytes % 35.6 % (15.3-44.8); MPV 10.1 fL (7.6-11.3); Monocytes % 7.9 % (3.3-12.3); RBC Red Blood Cell Count 2.67 M/uL (3.86-4.86)
[2018-07-20 06:45] LABS: ALT/SGPT 29 U/L (12-78); AST/SGOT 13 U/L (15-37); Albumin 2.6 g/dL (3.4-5.0); Alkaline Phosphatase 42 U/L (45-117); BUN Blood Urea Nitrogen 10 mg/dL (7-18); Bicarbonate 28 mmol/L (21-32); Bilirubin Total 0.2 mg/dL (0.2-1.0); Glucose Level 114 mg/dL (74-106); Potassium 3.8 mmol/L (3.5-5.1); Protein, Total 5.4 g/dL (6.4-8.2); Sodium Level 144 mmol/L (136-145)
[2018-07-20] MEDS ORDERED: POTASSIUM 25 MEQ EFFERV TAB PO ONE (09:00)
--- NOTE | 2018-07-20 16:58 | P.PN ---
Subjective Date of Service: 07/20/18 Chief Complaint: Hematochezia, anemia, hgb to 5.1 Subjective: No C/O voiced, Improving Patient seen and examined at bedside. No family at bedside. Chart reviewed and case discussed with nursing staff.. Reports feeling better, denies any symptoms this morning. States she would like to eat Review of Systems 10-point ROS is otherwise unremarkable Physical Examination - Vital Signs Temperature: 98.1 F Blood Pressure: 132/78 Pulse: 82 Respirations: 20 Pulse Ox (%): 100 - Physical Exam General: Alert, In no apparent distress, Oriented x3 HEENT: Atraumatic, PERRLA, EOMI Neck: Supple, JVD not distended Respiratory: Clear to auscultation bilaterally, Normal air movement Cardiovascular: Regular rate/rhythm, Normal S1 S2 Gastrointestinal: Normal bowel sounds, No tenderness Musculoskeletal: No tenderness Integumentary: No rashes Neurological: Normal speech, Normal tone, Normal affect Lymphatics: No axilla or inguinal lymphadenopathy Assessment And Plan - Current Problems (Diagnosis) (1) GI bleeding Onset Date: 07/18/18 Current Visit: Yes Status: Acute Qualifiers: GI bleed type/associated pathology: unspecified gastrointestinal hemorrhage type Qualified Code(s): K92.2 - Gastrointestinal hemorrhage, unspecified (2) Acute blood loss anemia Onset Date: 07/18/18 Current Visit: Yes Status: Acute (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 She is status post 3 units PRBCs total. Transfuse to keep Hgb above 8; Maintenance IVF Hold anticoagulation. Monitor H&H post transfussion GI bleeding (Acute 07/18/18) K92.2 GI consult (Dr. Faria's patient) recommendations appreciated She is status post colonoscopy. Per GI, transfer to [facility] due to possible need for urgent Cecectomy as we do not have an invasive colorectal surgeon here at [facility]. Dr. 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 Transfer for higher level of care. She is still pending a bed
[2018-07-21] MEDS: PANTOPRAZOLE INJ 80 MG in NA CHLORIDE 0.9% 250 ML IV SCH ×2 (04:25→11:41)
[2018-07-21 05:19] LABS: Absolute Lymphocytes (CBC) 1.7 K/uL (0.7-4.9); Absolute Monocytes 0.4 K/uL (0.1-1.3); Absolute Neutrophil 2.7 K/uL (1.8-8.0); Basophils % 0.5 % (0-1.3); Eosinophils % 2.9 % (0-4.4); Hematocrit 25.9 % (36.0-45.0); MPV 10.1 fL (7.6-11.3); Monocytes % 7.6 % (3.3-12.3)
[2018-07-21] MEDS ORDERED: DOCUSATE NA 100 MG CAP PO PRN (09:42)
[2018-07-21] MEDS: NA CHLORIDE 0.9% 1,000 ML IV SCH ×2 (11:40→21:24)
--- NOTE | 2018-07-21 13:36 | P.PN ---
Subjective Date of Service: 07/21/18 Chief Complaint: Hematochezia, anemia, hgb to 5.1 Subjective: No C/O voiced, Improving Patient seen and examined at bedside. No family at bedside. Chart reviewed and case discussed with nursing staff.. Reports feeling better, denies any symptoms this morning. No bowel movement yet, no bleeding noted at this time. Review of Systems 10-point ROS is otherwise unremarkable Physical Examination - Vital Signs Temperature: 98.1 F Blood Pressure: 116/75 Pulse: 73 Respirations: 20 Pulse Ox (%): 99 - Physical Exam General: Alert, In no apparent distress, Oriented x3 HEENT: Atraumatic, PERRLA, EOMI Neck: Supple, JVD not distended Respiratory: Clear to auscultation bilaterally, Normal air movement Cardiovascular: Regular rate/rhythm, Normal S1 S2 Gastrointestinal: Normal bowel sounds, No tenderness Musculoskeletal: No tenderness Integumentary: No rashes Neurological: Normal speech, Normal tone, Normal affect Lymphatics: No axilla or inguinal lymphadenopathy Assessment And Plan - Current Problems (Diagnosis) (1) GI bleeding Onset Date: 07/18/18 Current Visit: Yes Status: Acute Qualifiers: GI bleed type/associated pathology: unspecified gastrointestinal hemorrhage type Qualified Code(s): K92.2 - Gastrointestinal hemorrhage, unspecified (2) Acute blood loss anemia Onset Date: 07/18/18 Current Visit: Yes Status: Acute (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 She is status post 3 units PRBCs total. Transfuse to keep Hgb above 8; Maintenance IVF Hold anticoagulation. Monitor H&H post transfussion GI bleeding (Acute 07/18/18) K92.2 GI consult (Dr. Faria's patient) recommendations appreciated She is status post colonoscopy. Per GI, transfer to [facility] due to possible need for urgent Cecectomy as we do not have an invasive colorectal surgeon here at [facility]. Dr. 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 Transfer for higher level of care. She is still pending a bed
[2018-07-22] MEDS: PANTOPRAZOLE INJ 80 MG in NA CHLORIDE 0.9% 250 ML IV SCH ×2 (02:17→03:45)
[2018-07-22] MEDS: NA CHLORIDE 0.9% 1,000 ML IV SCH (07:25)
[2018-07-22 09:41] LABS: Absolute Lymphocytes (CBC) 1.2 K/uL (0.7-4.9); Absolute Monocytes 0.3 K/uL (0.1-1.3); Absolute Neutrophil 2.8 K/uL (1.8-8.0); Basophils % 0.6 % (0-1.3); Eosinophils % 2.7 % (0-4.4); Hematocrit 27.3 % (36.0-45.0); Lymphocytes % 27.6 % (15.3-44.8); MPV 9.7 fL (7.6-11.3); Monocytes % 6.7 % (3.3-12.3)
[2018-07-22 10:01] LABS: BUN Blood Urea Nitrogen 10 mg/dL (7-18); Bicarbonate 28 mmol/L (21-32); Glucose Level 98 mg/dL (74-106); Potassium 4.2 mmol/L (3.5-5.1); Sodium Level 143 mmol/L (136-145)
[2018-07-22] MEDS ORDERED: ACETAMINOPHEN 500 MG TAB PO ONE (11:43)
--- NOTE | 2018-07-22 12:55 | P.DS ---
Admission Date: 07/17/18 Discharge Date: 07/22/18 Disposition: ROUTINE DISCHARGE Discharge Condition: GOOD Reason for Admission: Hematochezia, anemia, hgb to 5.1 Consultations: Dr. 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 Per patient she has been having more the maroon/ read solid stools for the past few days that has been progressively worsening and getting brighter. This has been associated with dizziness, especially when moving and headache. She also endorses shortness of breath with exertion. Denies any hematemesis, chest pain, abdominal pain, or complaints. She had been following up with Dr. engle this clinic, she even had a bowel prep, was supposed to do the EGD and colonoscopy on the day of admission. When she went to the clinic, her blood work was drawn in the morning, hemoglobin was 5.6 and she was sent to the ER for further evaluation/transfusion. In the ER, she was found to have a hemoglobin of 5.1 and hematocrit of 15.2. At the time of my exam, patient was alert oriented x3, complaining of headache but was hemodynamically stable. Hospital Course: Patient was admitted for acute blood loss anemia and GI bleeding. Patient came in with a hemoglobin of 5, She is status post 3 units PRBCs total in this hospitalization. GI was consulted. She underwent colonoscopy and was found to have a ulcer. Biopsy does not show any evidence of malignancy. Per GI, she was recommended to be transferred to [facility] due to possible need for urgency sec to me as we do not have an invasive colorectal surgeon here at [facility]. Dr. engle did speak to colorectal surgeon Dr. Horne. 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 Unfortunately, the hospital saturated and patient not receive the bed/accepting physician over there. Her hemoglobin though remained stable, she had 2 bowel movements without any active bleeding. She remained hemodynamically stable, clinically she was tolerating an oral diet, ambulating without any concerns. She had no complaints of chest pain, shortness of breath , dizziness, syncopal/presyncopal episodes. Therefore the decision was made to discharge patient home with outpatient follow up with colorectal surgery. Patient's workup from this hospital was provided, including imaging and lab work. She was also provided with Dr. Horne' information. Of note, she also received 1 unit platelets prior to her colonoscopy due to her Glanzmann's thrombasthenia. Vital Signs/Physical Exam: Temp Pulse Resp BP Pulse Ox 97.7 F 79 18 115/57 L 99 07/22/18 08:00 07/22/18 08:00 07/22/18 08:00 07/22/18 08:00 07/22/18 08:00 General: Alert, In no apparent distress, Oriented x3 HEENT: Atraumatic, PERRLA, EOMI Neck: Supple, JVD not distended Respiratory: Clear to auscultation bilaterally, Normal air movement Cardiovascular: Regular rate/rhythm, Normal S1 S2 Gastrointestinal: Normal bowel sounds, No tenderness Musculoskeletal: No tenderness Integumentary: No rashes Neurological: Normal speech, Normal tone, Normal affect Lymphatics: No axilla or inguinal lymphadenopathy Laboratory Data at Discharge: WBC 4.5 K/uL (4.3-10.9) 07/22/18 09:33 Hgb 9.2 g/dL (12.0-15.0) L 07/22/18 09:33 Hct 27.3 % (36.0-45.0) L 07/22/18 09:33 Plt Count 248 K/uL (152-406) 07/22/18 09:33 PT 11.2 SECONDS (9.5-12.5) 07/19/18 05:45 INR 0.95 07/19/18 05:45 APTT 27.8 SECONDS (24.3-36.9) 07/19/18 05:45 Sodium 143 mmol/L (136-145) 07/22/18 09:33 Potassium 4.2 mmol/L (3.5-5.1) 07/22/18 09:33 BUN 10 mg/dL (7-18) 07/22/18 09:33 Creatinine 0.66 mg/dL (0.55-1.3) 07/22/18 09:33 Glucose 98 mg/dL (74-106) 07/22/18 09:33 Phosphorus 4.9 mg/dL (2.5-4.9) 07/19/18 05:45 Magnesium 2.1 mg/dL (1.8-2.4) 07/19/18 05:45 Total Bilirubin 0.2 mg/dL (0.2-1.0) 07/20/18 06:16 AST 13 U/L (15-37) L 07/20/18 06:16 ALT 29 U/L (12-78) 07/20/18 06:16 Alkaline Phosphatase 42 U/L (45-117) L 07/20/18 06:16 Lipase 85 U/L (73-393) 07/17/18 11:50 Home Medications: NK [No Home Meds] 07/17/18 Patient Discharge Instructions: Please follow up with your primary care physician [address] Horne' office to schedule an appointment in the next 1-2 days. Please return to the ED for worsening symptoms. Diet: Regular Activity: Ad brittney Followup: Fransisco Nettles MD [ASSOCIATE-ACTIVE - CAN ADMIT] - MANISH HORNE MD [OUTSIDE PHYSICIAN] - 2-3 Days Time spent managing pt's care (in minutes): 55
== END 2018-07-22 14:58 | disposition home or self-care (01) | DRG 394 ==
LOC: ER 11:02 → ERHOLD 14:20 → 2ND 15:56
PROVIDERS: ADMIT Family Medicine; ATTEND Family Medicine
PROC: 30233N1 Transfusion of Nonautologous Red Blood Cells into Peripheral Vein, Percutaneous Approach (ICD-10-PCS; 2018-07-18)
PROC: 0DB78ZX Excision of Stomach, Pylorus, Via Natural or Artificial Opening Endoscopic, Diagnostic (ICD-10-PCS; 2018-07-18)
PROC: 0W3P8ZZ Control Bleeding in Gastrointestinal Tract, Via Natural or Artificial Opening Endoscopic (ICD-10-PCS; principal; 2018-07-18 14:15)
PROC: 30233R1 Transfusion of Nonautologous Platelets into Peripheral Vein, Percutaneous Approach (ICD-10-PCS; 2018-07-18 14:15)
DX: K63.3 Ulcer of intestine (principal); K92.2 Gastrointestinal hemorrhage, unspecified; D62 Acute posthemorrhagic anemia; K25.9 Gastric ulcer, unspecified as acute or chronic, without hemorrhage or perforation; K44.9 Diaphragmatic hernia without obstruction or gangrene; K64.8 Other hemorrhoids; D69.1 Qualitative platelet defects
CPT/HCPCS: 36415; 36430; 74250; 78290; 80048; 80053; 80076; 81003; 81015; 81025; 83690; 83735; 84100; 85014; 85018; 85025; 85049; 85610; 85730; 86850; 86900; 86901; 87086; 87088; 88305; 88312; 94760; 96365; 96366; 99285; A9512; C9113; J0171; J2250; J2405; J2704; J7030; P9016; P9035